=== PATIENT | male | born 1985 | race Caucasian/White ===

== ENCOUNTER 2022-07-22 22:38 | Emergency (ER) | payer BC, MEDICAID ==
[~2022-07-22] VITALS: Ht 172.7 cm; Wt 83.9 kg
[2022-07-22 22:47] VITALS: BP_SYST 128
== END 2022-07-22 23:25 | disposition home or self-care (01) ==
LOC: SED 22:38
DX: T15.01XA Foreign body in cornea, right eye, initial encounter (principal); Z79.899 Other long term (current) drug therapy; W45.8XXA Other foreign body or object entering through skin, initial encounter; Y93.89 Activity, other specified; Y92.89 Other specified places as the place of occurrence of the external cause; Y99.8 Other external cause status
CPT/HCPCS: 99283